=== PATIENT | female | born 1960 | race Caucasian/White ===

== ENCOUNTER 2016-09-28 15:38 | Day surgery (SDC) | payer OTHER ==
[~2016-09-28] VITALS: Ht 154.9 cm; Wt 66.9 kg
[2016-09-28 16:15] VITALS: BP 102/59; PULSE 70; RESP 24
[2016-09-28 16:16] VITALS: Ht 154.9 cm; Wt 66.9 kg
[2016-09-28] MEDS ORDERED: HORMONES (16:20)
[2016-09-28] MEDS ORDERED: FENTAnyl 50 MCG/ML VIAL ONE (17:15)
[2016-09-28] MEDS ORDERED: MIDAZOLAM 1 MG/ML 2 ML INJ ONE ×2 (17:15)
[2016-09-28 17:40] VITALS: BP 101/61; PULSE 60; RESP 14
--- NOTE | 2016-10-02 06:56 | GILP ---
DATE OF PROCEDURE: PROCEDURE PERFORMED: Screening colonoscopy. PREOP DIAGNOSIS: Rule out colon polyps. POSTOP DIAGNOSIS: Minimal external hemorrhoids. The rest of the colon appeared normal. DESCRIPTION OF PROCEDURE: After the informed written consent is obtained, patient was asked to lie in the left lateral side. 3 mg Versed and 50 mcg of fentanyl was given as intravenous anesthesia. When the patient became somnolent, Olympus video colonoscope was introduced into the rectum and scope was advanced all the way to the cecum. Entire colon appeared perfectly normal. No polyps and no mucosal abnormalities detected. The endoscope at this time was withdrawn, and on the way out no additional abnormalities detected. Retroflexion was performed. Minimal internal hemorrhoids noted and the scope was withdrawn. Minimal external hemorrhoids noted and the procedure was terminated. PLAN: Recommend repeat colonoscopy in 10 years. Dictated By: Jaime Baron MD /shey/neo /Document#: [id number] ; Dr. Bone [place]
== END 2016-09-28 19:38 | disposition home or self-care (01) ==
LOC: GIL 15:38
PROVIDERS: ATTEND Internal Medicine Gastroenterology
DX: Z12.11 Encounter for screening for malignant neoplasm of colon (principal); K64.4 Residual hemorrhoidal skin tags
CPT/HCPCS: 45378; J2250; J3010; Z7610

== ENCOUNTER 2017-08-21 06:27 | Day surgery (SDC) | END 2017-08-21 10:30 | disposition home or self-care (01) ==